=== PATIENT | female | born 1985 | race Caucasian/White ===

== ENCOUNTER 2018-03-13 23:08 | Emergency (ER) | payer OTHER, MEDICAID, SELFPAY ==
[2018-03-13 23:15] VITALS: BP 113/71; PULSE 81; RESP 12; TEMP 36.6; O2SAT 97; BMI 41.0
--- NOTE | 2018-03-13 23:28 | DI.RAD.S_ITS ---
PROCEDURE: XR SHOULDER RT MIN 2V INDICATIONS: Right shoulder pain after fall TECHNIQUE: 3 views of the shoulder were acquired. COMPARISON: None. FINDINGS: Bones: No fractures or dislocations. No suspicious bony lesions. Visualized ribs appear intact. Mild acromioclavicular joint degeneration. Soft tissues: No suspicious soft tissue calcifications. IMPRESSION: No fracture identified. Dictated by: Marvin Morin M.D. on 03/14/2018 at 7:46 Approved by: Marvin Morin M.D. on 03/14/2018 at 7:49
--- NOTE | 2018-03-13 23:28 | DI.RAD.S_ITS ---
PROCEDURE: XR KNEE RT 3V INDICATIONS: fall with knee pain TECHNIQUE: 3 views of the knee were acquired. COMPARISON: None. FINDINGS: Bones: No fractures or dislocations. No suspicious bony lesions. Soft tissues: No joint effusion. No suspicious soft tissue calcifications. There is questionable/mild prepatellar soft tissue swelling although recommend clinical correlation. IMPRESSION: No fracture. Dictated by: Marvin Morin M.D. on 03/14/2018 at 7:35 Approved by: Marvin Morin M.D. on 03/14/2018 at 7:36
--- NOTE | 2018-03-13 23:29 | DI.RAD.S_ITS ---
PROCEDURE: XR PELVIS 1-2V INDICATIONS: fall, right hip pain TECHNIQUE: Single view(s) of the pelvis acquired. COMPARISON: None. FINDINGS: Bones: No fractures or dislocations. No suspicious bony lesions. Soft tissues: Visualized bowel gas pattern is normal. No suspicious soft tissue calcifications. IMPRESSION: No fracture Dictated by: Marvin Morin M.D. on 03/14/2018 at 7:45 Approved by: Marvin Morin M.D. on 03/14/2018 at 7:46
--- NOTE | 2018-03-13 23:29 | DI.CT.S_ITS ---
PROCEDURE: CT CERVICAL SPINE WO CON INDICATIONS: neck pain, fall TECHNIQUE: Noncontrast 3 mm thick sections acquired from the skull base to the T4 level. Sagittal and coronal reformats were then constructed. For radiation dose reduction, the following was used: automated exposure control, adjustment of mA and/or kV according to patient size. COMPARISON: None. FINDINGS: Image quality: Excellent. Bones: No fractures or dislocations. Visualized superior ribs are intact. Straightening of the normal cervical lordosis. Soft tissues: Prevertebral soft tissues are normal in thickness. No paravertebral hematomas. No apical pneumothoraces. IMPRESSION: No fracture Straightening of the normal cervical lordosis Dictated by: Marvin Morin M.D. on 03/14/2018 at 7:36 Approved by: Marvin Morin M.D. on 03/14/2018 at 7:38
--- NOTE | 2018-03-13 23:29 | DI.RAD.S_ITS ---
PROCEDURE: XR CHEST 1V INDICATIONS: fall, trauma TECHNIQUE: One view of the chest was acquired. COMPARISON: None. FINDINGS: Surgical changes and devices: None. Lungs and pleura: No pleural effusions or pneumothorax. Lungs are clear. Mediastinum: Mediastinal contours appear normal. Heart size is normal. Bones and chest wall: No suspicious bony lesions. Overlying soft tissues appear unremarkable. IMPRESSION: No acute disease. Dictated by: Marvin Morin M.D. on 03/14/2018 at 7:26 Approved by: Marvin Morin M.D. on 03/14/2018 at 7:27
[2018-03-13 23:53] LABS: Add Manual Diff / Slide Review NO; Basophils Percent Auto 1.1 % (0-2); Eosinophils Percent Auto 1.8 % (2-4); Hematocrit 37.3 % (36-46); Hemoglobin 13.3 g/dL (12.0-16.0); Lymphocytes Percent Auto 25.6 % (25-40); Mean Corpuscular HGB Conc 35.7 % (30-36); Mean Corpuscular Volume 95.2 fL (80-100); Monocytes Percent Auto 6.1 % (3-14); Neutrophils Absolute Auto 4300 /uL (3000-5900); Neutrophils Percent Auto 65.4 % (50-75); Platelet Count 187 X10^3/uL (150-400); Red Blood Cell Count 3.92 X10^6/uL (4.0-5.2); Red Cell Distribution Width 12.3 % (11.6-14.8); White Blood Cell Count 6.5 X10^3/uL (4.5-11.0)
[2018-03-14 01:04] LABS: BUN Creatinine Ratio 21.4 (6-22); Blood Urea Nitrogen 15 mg/dL (7-17); Calcium 8.8 mg/dL (8.4-10.2); Carbon Dioxide 26 mmol/L (22-32); Chloride 105 mmol/L (98-107); Estimated Glomerular Filt Rate > 60.0 mL/min (>60); Glucose 113 mg/dL (70-100); HEMOLYSIS < 15 (0-50); Potassium 3.7 mmol/L (3.4-5.1); Sodium 141 mmol/L (137-145)
[2018-03-14 02:00] VITALS: BP 119/78; PULSE 78; RESP 16; O2SAT 97
--- NOTE | 2018-03-14 02:05 | DI.CT.S_ITS ---
PROCEDURE: CT LE RT WO CON INDICATIONS: severe pain after trauma to right knee TECHNIQUE: Noncontrast 1-1.5 mm axial sections acquired from the mid-patella to the proximal tibia, with coronal and sagittal reformats. COMPARISON: [facility], CR, XR KNEE RT 3V, 03/13/2018, 23:12. FINDINGS: Image quality: Excellent. Bones: No fracture or focal osseous destruction. Soft tissues: Prepatellar soft tissue swelling. There are diffuse extensive varices. No joint effusion. IMPRESSION: No fracture. Prepatellar soft tissue swelling. If the patient's symptoms do not improve, recommend further evaluation with noncontrast knee MRI. Dictated by: Marvin Morin M.D. on 03/14/2018 at 8:15 Approved by: Marvin Morin M.D. on 03/14/2018 at 8:18
[2018-03-14] MEDS: KETOROLAC 60 MG/2 ML VIAL 15 MG IV (02:10)
--- NOTE | 2018-03-14 02:44 | ED_ITS ---
HPI - Fall General Chief Complaint: Fall Stated Complaint: GFL Rt Knee pain Time Seen by Provider: 03/13/18 23:10 Source: patient and EMS Mode of arrival: EMS Limitations: no limitations History of Present Illness HPI Narrative: 32-year-old smoking female with history migraines presents by aeromedical transport with chief complaint of severe right shoulder and knee pain after a ground level fall. She was walking and stepped on uneven terrain and fell to her right side while caring an . He can effort to not fall on and therefore injure the infant she landed on her right knee and shoulder. She denies any head injury or neck pain. She has no numbness, tingling or weakness. She has severe pain in the shoulder which is worse with range of motion but denies numbness or tingling. She is unable to ambulate due to pain in her right knee. She was transported by air given lack of availability for ground transport. She was evaluated on scene by paramedics. She admits to some marijuana use tonight but denies any alcohol or illicit drugs MD complaint: fall Onset (ago): hour(s) Fall from: standing Fall witnessed: yes, by family Place fall occurred: home Loss of consciousness: none Prolonged down time: no Symptoms prior to fall: none Context: tripped/slipped Location of injury - extremities: Right: shoulder and knee Severity: moderate Quality: burning and sharp Associated symptoms (after fall): neck pain Related Data Previous Rx's Medication Instructions Recorded Nebulizer: Home Unit u INH Q4HP PRN #1 07/05/16 albuterol sulfate 3 ml INH Q4HP #25 inh 07/05/16 albuterol sulfate [Proventil HFA] 0.09 mg IH Q4HP #1 inh 10/13/16 beclomethasone dipropionate [Qvar] 0 INH BID #3 inh 10/13/16 fluticasone-salmeterol [Advair 1 puff INH BID #14 dose 10/13/16 Diskus] ketorolac 10 mg PO Q6H PRN #14 tab 03/14/18 Allergies Allergy/AdvReac Type Severity Reaction Status Date / Time codeine [CODEINE] Allergy Unknown N/V FROM Verified 03/13/18 23:20 T-3 risperidone [RISPERIDONE] Allergy Unknown Verified 03/13/18 23:20 tramadol [TRAMADOL] Allergy Unknown BOWLING, N/V Verified 03/13/18 23:20 Review of Systems Review of Systems All systems reviewed & are unremarkable except as noted in HPI and below Constitutional Denies chills, Denies fever(s), Denies lethargy and Denies weakness Eyes Denies change in vision, Denies eye discharge, Denies irritation and Denies loss of vision ENT Ears, Nose, Mouth, and Throat: Denies change in voice, Reports neck pain and Denies sore throat Cardiovascular Denies chest pain, Denies irregular heart rhythm, Denies lightheadedness, Denies palpitations, Denies dyspnea, Denies dyspnea on exertion and Denies orthopnea Respiratory Denies cough, Denies dyspnea, Denies dyspnea on exertion and Denies wheezing Gastrointestinal Gastrointestinal: Denies abdominal pain, Denies change in bowel habits, Denies diarrhea, Denies nausea and Denies vomiting Genitourinary Denies hematuria, Denies flank pain, Denies urinary incontinence and Denies urinary urgency Musculoskeletal Reports limited range of motion and Reports neck pain Integumentary/Breasts Denies pruritus, Denies erythema, Denies rash and Denies wounds Neurologic Denies confusion, Denies loss of vision and Denies weakness Psychiatric Denies anxiety, Denies confusion, Denies depression, Denies homicidal ideation and Denies suicidal ideation Endocrine Denies palpitations Hematologic/Lymphatic Denies easy bruising Allergic/Immunologic Denies wheezing Exam Narrative Exam Narrative: 32-year-old female obviously in pain, alert and oriented, GCS 15 Initial Vital Signs Initial Vital Signs: Vital Signs Temperature 97.9 F 03/13/18 23:15 Pulse Rate 81 03/13/18 23:15 Respiratory Rate 12 03/13/18 23:15 Blood Pressure 113/71 03/13/18 23:15 Pulse Oximetry 97 03/13/18 23:15 Const General: cooperative, well developed and acute distress Nutritional Appearance: well nourished Orientation: alert, awake, oriented x3 and not confused [facility] Head: normocephalic and atraumatic Ears: external ears normal and TM's normal bilaterally Nose: external nose normal and No nasal discharge Face and sinus: sinuses nontender, face symmetric, no sinus tenderness and No dry mucous membranes Mouth: oral mucosae normal and moist mucous membranes Teeth and gingiva: dentition normal Throat: tonsils normal and uvula midline Eyes General: appearance normal, both eyes and all related structures Eyelids: eyelids normal Conjunctivae: conjunctivae normal Sclera: sclerae normal Pupils: PERRL EOM: EOM intact bilaterally Neck Neck: normal visual inspection, full ROM and tender (Midline to palpation) Chest Chest: normal inspection of the chest Resp Effort & Inspection: normal respiratory effort, able to speak in complete sentences, no respiratory distress and no use of accessory muscles Auscultation: clear to auscultation bilaterally, no rales, no rhonchi and no wheezes Cardio Rate: regular rate Rhythm: regular rhythm Heart Sounds: no click, no gallops, no murmurs and no rubs Pulses: normal peripheral pulses GI Inspection: non-distended Palpation: soft, no hepatosplenomegaly, No guarding, No pulsatile mass and No tender Auscultation: normal bowel sounds Back/Spine/Pelvis Back: No CVA tenderness Cervical Spine: cervical ROM normal and No pain with cervical ROM Thoracic/Lumbar Spine: thoracic and lumbar spine normal to inspection Skin General: no rashes or lesions noted, No jaundice and No petechiae Neuro General: alert, oriented x3, gait normal and no focal motor deficits Speech: speech normal Extrem Right upper extremity: shoulder/upper arm Details: abnormal to inspection, tenderness and abnormal ROM Left upper extremity: normal to inspection Right lower extremity: knee Details: abnormal to inspection, tenderness, swelling and abnormal ROM Psych Appearance: well kempt Mental Status: mental status grossly normal Attitude: cooperative Thought Content: normal and suicidality Judgment: judgment good [facility] Family History Father Age: 53 Diabetes mellitus Essential hypertension High cholesterol Mental health problem Grandfather Cancer Grandmother Cancer Grandmother Diabetes mellitus Essential hypertension High cholesterol Mental health problem Social History Smoking Status: Current every day smoker Procedures Orthopedic Splinting/Casting Injury #1: Side: right Lower Extremity Injury Location: knee Lower Extremity Immobilizer: knee immobilizer Course Orders Ordered: ED Orders 03/13/18 23:28 XR knee RT 3V Stat XR shoulder RT min 2V Stat 03/13/18 23:29 CT cervical spine wo con Stat XR chest 1V Stat XR pelvis 1-2V Stat 03/13/18 23:40 Complete Blood Count AUTO DIFF Stat 03/14/18 00:01 Basic Metabolic Panel Stat 03/14/18 02:05 CT LE RT wo con Stat Discontinued Medications Ketorolac Tromethamine (Toradol) 15 mg IV NOW ONE Stop: 03/14/18 02:09 Last Admin: 03/14/18 02:10 Dose: 15 mg Vital Signs - 8 hr 03/13/18 23:15 03/14/18 02:00 Temperature 97.9 F Pulse Rate 81 78 Respiratory Rate 12 16 Blood Pressure 113/71 Blood Pressure [Left Arm] 119/78 Pulse Oximetry 97 97 MDM - Fall Medical Records Attestation: I reviewed the patient's medical records. Lab Data Attestation: I reviewed the patient's lab results. Result diagrams: 03/13/18 23:40 03/13/18 23:40 Lab Results 03/13/18 03/13/18 Range/Units 23:40 23:40 WBC 6.5 (4.5-11.0) X10^3/uL RBC 3.92 L (4.0-5.2) X10^6/uL Hgb 13.3 (12.0-16.0) g/dL Hct 37.3 (36-46) % MCV 95.2 (80-100) fL MCH 34.0 (26-34) PG MCHC 35.7 (30-36) % RDW 12.3 (11.6-14.8) % Plt Count 187 (150-400) X10^3/uL Neut % (Auto) 65.4 (50-75) % Lymph % (Auto) 25.6 (25-40) % [place] % (Auto) 6.1 (3-14) % Eos % (Auto) 1.8 L (2-4) % Baso % (Auto) 1.1 (0-2) % Neut # (Auto) 4300 (3456-6117) /uL Sodium 141 (137-145) mmol/L Potassium 3.7 (3.4-5.1) mmol/L Chloride 105 (98-107) mmol/L Carbon Dioxide 26 (22-32) mmol/L BUN 15 (7-17) mg/dL Creatinine 0.70 (0.52-1.04) mg/dL Estimated GFR > 60.0 (>60) mL/min BUN/Creatinine Ratio 21.4 (6-22) Glucose 113 H (70-100) mg/dL Calcium 8.8 (8.4-10.2) mg/dL Imaging Data CT Cspine: Radiologist's impression: No bony injury Chest x-ray: Attestation: I personally reviewed and interpreted this imaging study as follows: My impression: NAP Pelvis Xray: Attestation: I personally reviewed and interpreted this imaging study as follows: My impression: NAP Xray Shoulder: Attestation: I personally reviewed and interpreted this imaging study as follows: My impression: NAP CT Knee: Radiologist's impression: No acute bony abnormality Discharge Plan Departure Patient Disposition: Home Clinical Impression: Sprain of right shoulder, Knee sprain, Contusion of knee, right Instructions: DI for Knee Sprain Activity Restrictions/Additional Instructions: *You have been diagnosed with [ right shoulder and knee sprain and contusion secondary to fall ] *What to do: *Take medications as directed *Follow up with your primary care provider in 2-3 days, call for an appointment. Let them know you were seen in the Emergency Department and that we ask that you be seen in follow up *Return to ER if you should have any new, worsening or concerning symptoms Prescriptions: New ketorolac 10 mg tablet 10 mg PO Q6H PRN (Reason: pain) Qty: 14 RF: 0 No Action albuterol sulfate 2.5 MG/3 ML solution for nebulization 3 ml INH Q4HP Qty: 25 RF: 2 Nebulizer: Home Unit INH Q4HP PRNQty: 1 RF: 0 fluticasone-salmeterol [Advair Diskus] 250 MCG/50 MCG blister with device 1 puff INH BID Qty: 14 RF: 6 beclomethasone dipropionate [Qvar] 80 MCG/PUFF aerosol INH BID Qty: 3 RF: 3 albuterol sulfate [Proventil HFA] 90 MCG/PUFF HFA aerosol inhaler 0.09 mg IH Q4HP Qty: 1 RF: 2 Referrals: John Quesada MD [Primary Care Provider] -
[2018-03-14] MEDS: HYDROCODONE/ACET 5/325 PREPACK 1 BOTTLE MISC (03:36)
[2018-03-14 03:52] VITALS: BP 128/62; PULSE 72; RESP 18; O2SAT 99
== END 2018-03-14 03:56 | disposition home or self-care (01) ==
PROVIDERS: Emergency Provider Emergency Medicine; Family Provider Family Medicine; PCP Family Medicine
DX: S83.91XA Sprain of unspecified site of right knee, initial encounter (principal); S80.01XA Contusion of right knee, initial encounter; W01.0XXA Fall on same level from slipping, tripping and stumbling without subsequent striking against object, initial encounter
CPT/HCPCS: 36415; 71045; 72125; 72170; 73030; 73562; 73700; 80048; 85025; 96374; 99283; 99284; J1885